=== PATIENT | male | born 1970 ===

== ENCOUNTER 2021-11-01 10:06 | Outpatient (CLI) | payer BC | END 2021-11-01 10:07 | disposition home or self-care (01) | LOC: MRI 10:06 | PROVIDERS: ATTEND Internal Medicine Gastroenterology | DX: R10.11 Right upper quadrant pain (principal); K86.2 Cyst of pancreas; K91.873 Postprocedural seroma of a digestive system organ or structure following other procedure; Z20.822 Contact with and (suspected) exposure to COVID-19 | CPT/HCPCS: 74183 ==